=== PATIENT | male | born 1995 | race Two or more races ===

== ENCOUNTER 2018-07-15 14:13 | Emergency (ER) | payer OTHER ==
[~2018-07-15] VITALS: Ht 180.3 cm; Wt 102.5 kg
[2018-07-15 14:28] VITALS: BP 110/88
[2018-07-15] MEDS ORDERED: KETOROLAC TROMETH 60MG/2ML VIAL IM ONE (15:45)
== END 2018-07-15 16:32 | disposition home or self-care (01) ==
LOC: ER 14:13
DX: S81.032A Puncture wound without foreign body, left knee, initial encounter (principal); W22.8XXA Striking against or struck by other objects, initial encounter; Y93.89 Activity, other specified; Y99.8 Other external cause status; Y92.89 Other specified places as the place of occurrence of the external cause
CPT/HCPCS: 73562; 96372; 99284; J1885